=== PATIENT | female | born 1990 ===

== ENCOUNTER 2022-07-07 02:35 | Inpatient (IN) | payer SELFPAY ==
--- NOTE | 2022-07-07 04:41 | Ultrasound Report ---
Limited OB ultrasound INDICATION: well-being FINDINGS: Single live intrauterine in cephalic position. heart rate is 1 34 bpm. PEACE measures 16.9 cm. Signer Name: Rico Vann MD Signed: 07/07/2022 4:36 AM Workstation Name: [id number]
[2022-07-07 05:17] LABS: Hematocrit 34.4 % (30.3-42.9); Hemoglobin 11.6 gm/dl (10.1-14.3); Mean Corpuscular HGB Conc 34 % (30-34); Mean Corpuscular Volume 86 fl (79-97); Platelet Count 215 K/mm3 (140-440); Red Blood Count 3.99 M/mm3 (3.65-5.03); Red Cell Distribution Width 13.6 % (13.2-15.2)
[2022-07-07] MEDS ORDERED: ePHEDrine SULFATE 50 MG/1 ML INJ IV PRN ×2 (07:30→09:01)
[2022-07-07] MEDS ORDERED: METHYLERGONOVINE MALEATE 0.2 MG/ML VIAL IM PRN (08:00)
[2022-07-07] MEDS ORDERED: OXYTOCIN 10 UNIT/1 ML INJ IM PRN (08:00)
[2022-07-07] MEDS ORDERED: miSOPROStol 200 MCG TAB PR PRN (08:00)
[2022-07-07] MEDS ORDERED: OXYTOCIN DRIP 30 UNITS/500 ML BAG IV SCH ×3 (08:00→21:17)
[2022-07-07] MEDS ORDERED: BUTORPHANOL 2 MG/1 ML INJ IV PRN ×2 (08:00)
[2022-07-07] MEDS ORDERED: CARBOPROST TROMETHAMINE 250 MCG/1 ML INJ IM PRN (08:00)
[2022-07-07] MEDS ORDERED: ACETAMINOPHEN 325 MG TAB PO PRN (08:00)
[2022-07-07] MEDS ORDERED: LOPERAMIDE 2 MG CAP PO PRN (08:00)
--- NOTE | 2022-07-07 08:16 | History and Physical Report ---
History of Present Illness Date of examination: 07/07/22 Date of admission: 07/07/22 07:06 Chief complaint: I'm in labor History of present illness: 31 y/o presents to labor and delivery in labor. She is a patient of [facility]. She has a hx of primary for Breech in 2010 and a successful in 2017. GBS Negative Past History Past Medical History: no pertinent history Past Surgical History: section Social history: no significant social history - Obstetrical History Expected Date of Delivery: 07/10/22 Actual Gestation: 39 Week(s) 4 Day(s) : 3 Number of Living Children: 2 Medications and Allergies Allergies Allergy/AdvReac Type Severity Reaction Status Date / Time No Known Allergies Allergy Unverified 07/07/22 03:13 Active Meds: Active Medications Acetaminophen (Acetaminophen 325 Mg Tab) 650 mg PO Q4H PRN PRN Reason: Pain, Mild (1-3) Butorphanol Tartrate (Butorphanol 2 Mg/1 Ml Inj) 1 mg IV Q2H PRN PRN Reason: Pain, Moderate(4-6) LABOR PAIN Butorphanol Tartrate (Butorphanol 2 Mg/1 Ml Inj) 2 mg IV Q2H PRN PRN Reason: Pain , Severe (7-10) Carboprost Tromethamine (Carboprost Tromethamine 250 Mcg/1 Ml Inj) 250 mcg IM ONCE PRN PRN Reason: Uterine Bleeding Ephedrine Sulfate (Ephedrine Sulfate 50 Mg/1 Ml Inj) 10 mg IV Q2M PRN PRN Reason: Hypotension Oxytocin/Sodium Chloride (Pitocin/Ns 30 Unit/500ml) 30 units in 500 mls @ 2 mls/hr IV TITR ANALISA; Protocol Lactated Ringer's (Lactated Ringers) 1,000 mls @ 125 mls/hr IV DIRECT ANALISA Oxytocin/Sodium Chloride (Pitocin/Ns 30 Unit/500ml) 30 units in 500 mls @ 40 mls/hr IV TITR ANALISA; Protocol Lidocaine (Lidocaine (2%) 20 Mg/1 Ml Vial 20 Ml Mdv) 20 ml INFILTRATI ONCE ONE Stop: 07/07/22 07:05 Loperamide HCl (Loperamide 2 Mg Cap) 2 mg PO ONCE PRN PRN Reason: give with Hemabate Methylergonovine Maleate (Methylergonovine Maleate 0.2 Mg/Ml Vial) 0.2 mg IM ONCE PRN PRN Reason: Uterine Bleeding Mineral Oil (Mineral Oil 30 Ml Oral Liqd) 30 ml PO QHS PRN PRN Reason: Constipation Misoprostol (Misoprostol 200 Mcg Tab) 800 mcg AL ONCE PRN PRN Reason: Uterine Bleeding Oxytocin (Oxytocin 10 Unit/1 Ml Inj) 10 unit IM ONCE PRN PRN Reason: Uterine Bleeding Terbutaline Sulfate (Terbutaline 1 Mg/1 Ml Inj) 0.25 mg SUB-Q ONCE PRN PRN Reason: Hyperstimulation/Hypertonicity Review of Systems All systems: negative - Vital Signs Vital signs: Vital Signs Pulse Pulse Ox 108 H 98 07/07/22 02:56 07/07/22 02:56 Temp Pulse Resp BP Pulse Ox 98.6 F 88 133/89 98 07/07/22 02:57 07/07/22 07:35 07/07/22 06:55 07/07/22 07:35 - Physical Exam Breasts: Positive: deferred Cardiovascular: Regular rate Lungs: Positive: Clear to auscultation Abdomen: Positive: soft Vulva: both: normal Vagina: Positive: normal moisture Uterus: Positive: enlarged Adnexa: both: normal Deep Tendon Reflex Grade: Normal +2 - Obstetrical Uterine Contraction Monitor Mode: External Cervical Dilatation: 6 Cervical Effacement Percentage: 70 station: -1 Results Result Diagrams: 07/07/22 05:00 All other labs normal. Assessment and Plan A: Active labor @ 39.4 weeks P: Epidural Expect
[2022-07-07] MEDS ORDERED: LACTATED RINGERS 1,000 ML IV SCH (08:30)
[2022-07-07] MEDS ORDERED: LIDOCAINE (2%) 20 MG/1 ML VIAL 20 ML MDV INFILTRATI SCH (08:30)
[2022-07-07] MEDS ORDERED: TERBUTALINE 1 MG/1 ML INJ SUB-Q PRN (08:30)
--- NOTE | 2022-07-07 08:59 | Anesthesia Day of Surgery ---
Anesthesia Day of Surgery - Day of Surgery Patient Examined: Yes Patient H&P Reviewed: Yes Patient is NPO: Yes Beta Blockers: No Cardiac Clearance: No Pulmonary Clearance: No Uzair's Test: N/A
--- NOTE | 2022-07-07 08:59 | Anesthesia Consultation ---
Anesthesia Consult and Med Hx - Airway Anesthetic Teeth Evaluation: Good ROM Head & Neck: Adequate Mental/Hyoid Distance: Adequate Mallampati Class: Class II Intubation Access Assessment: Probably Good - Pulmonary Exam CTA: Yes - Cardiac Exam Cardiac Exam: RRR - Pre-Operative Health Status ASA Pre-Surgery Classification: ASA2 Proposed Anesthetic Plan: Epidural - Pulmonary Hx Smoking: No Hx Asthma: No - Cardiovascular System Hx Hypertension: No - Central Nervous System Hx Seizures: No Hx Psychiatric Problems: No - Endocrine Hx Renal Disease: No Hx Hypothyroidism: No Hx Hyperthyroidism: No - Hematic Hx Anemia: No Hx Sickle Cell Disease: No - Other Systems Hx Alcohol Use: No
[2022-07-07] MEDS ORDERED: MINERAL OIL 30 ML ORAL LIQD PO PRN (09:00)
[2022-07-07] MEDS ORDERED: NALOXONE 0.4 MG/1 ML INJ IV PRN (09:01)
[2022-07-07] MEDS ORDERED: LIDOCAINE MPF (2%) 20 MG/1 ML VIAL 5 ML ONE (09:36)
[2022-07-07] MEDS ORDERED: fentaNYL-BUPIV 2 MCG/ML-0.125% 200 MCG/100 ML BAG EPIDURAL SCH (10:00)
--- NOTE | 2022-07-07 13:10 | Event Note ---
Date: 07/07/22 pt evaluated and complete cervical dilation and category I FHR with areas of loss of contact. During pelvic exam pt SROM clear fluid 10/100/-2 station. Will allow descent with previous successful . If unsuccessful, I recommend repeat section at a later time. Hopeful for vaginal delivery.
--- NOTE | 2022-07-07 14:48 | Event Note ---
Date: 07/07/22 pt currently comfortable and no descent after more than 1hr of laboring down. Epidural dose decreased to 6 and u/s ordered for EFW. Discussed with pt alternate route of delivery with section if no descent. pt having ctx every 2-3mins. FHR remains category I. All questions encouraged and answered. Pelvic 10/100/-2 and with pushing almost to -1.
--- NOTE | 2022-07-07 16:01 | Ultrasound Report ---
ULTRASOUND OBSTETRIC LIMITED INDICATION / CLINICAL INFORMATION: estimated wt. Clinical Gestational Age (GA) in weeks, days: 39 weeks 4 days TECHNIQUE: Transabdominal. COMPARISON: None available. FINDINGS: NUMBER: Single PRESENTATION: cephalic PLACENTA: Fundal and free of the os. MEASUREMENTS: - Biparietal Diameter = 8.9 cm = 36 weeks, 0 days - Head Circumference = 32.47 cm = 36 weeks, 5 days - Abdominal Circumference = 37.58 cm = 41 weeks, 4 days - Femur Length = 7.12 cm = 36 weeks, 3 days - Estimated Weight (in grams, if calculated): 3723 g - Heart Rate (beats per minute): 171 ADDITIONAL FINDINGS: None. PERCENTILE ESTIMATED WEIGHT (if calculated): AVERAGE ULTRASOUND AGE (AUA) in weeks, days = 37 weeks 5 days IMPRESSION: 1. Single intrauterine with AUA of 37 weeks, 5 days. Signer Name: Kady Brown MD Signed: 07/07/2022 3:56 PM Workstation Name: [id number]
[2022-07-07 16:47] LABS: Cord Art Bld Carbxyhemoglobin 1.5; Cord Arterial Blood HCO3 20.9; Cord Arterial Oxyhemoglobin 41.8
--- NOTE | 2022-07-07 16:53 | Event Note ---
Attendance - Indication Indication for delivery Attendance: Distress Mode of Delivery: Vaginal Delivery Room Comment: called for Code [place] - vaginal delivery of 4320g female with nuchal cord and 's head/shoulder stuck in canal; HR ~ 100bpm, no respiratory effort; PPV x 30-45 sec with subsequent increase in HR to >100bpm and improved respiratory effort and tone; Pulse ox 96%; with significant facial bruising; CPT given for coarse breath sounds - bulb suctioned nares and oropharynx for moderate amounts clear fluid; stable infant left in L&D with Mom and SYLVIA nurse. - at 1 minute: 2 at 5 minutes: 9 Procedures in Delivery Room - Procedures Procedures in Delivery Room: Dry/Stimulate, Oral/Nasal Suctioning, CPAP (mask), IPPV (Bag & mask/[place] Disposition - Disposition Disposition: Remained with Mother Charges Charges: 57101 Resuscitation (If PPV given and/or Intubation/Chest Comp
--- NOTE | 2022-07-07 17:39 | Procedure Note ---
OB Delivery Note - Delivery Date of Delivery: 07/07/22 Surgeon: FLORENTINO TSE Estimated blood loss: 1000cc - Vaginal Delivery presentation: vertex Delivery position: OA Intrapartum events: shoulder dystocia Delivery induction: none Delivery monitor: external FHT, external uterine Route of delivery: Delivery placenta: spontaneous Delivery cord: 3 umbilical vessels Episiotomy: none Delivery laceration: 1st degree, 2nd degree Delivery repair: chromic Anesthesia: local, epidural Delivery comments: Pt had u/sound done and report pending. pt declined c/section option. Pt pushed ineffectively in dorsal lithotomy and left lateral and NICU present for delivery with shoulder dystocia after tight nuchal cord cut on the perineum. Pt stopped pushing in spite of encouragement from us and her spouse. Supra-pubic pressure given by nurse and me intermittently, and left posterior shoulder delivered with clockwise cork screw for the body. Viable male Baby delivered and then evaluated by NICU team with APGARS 2/9; Umbilical artery gas pH 7.3 and BE -6.2. Baby moving both arms equally and per SYLVIA nurse, no fractures. P lacenta delivered and then very marquez clot following with possible membranes/versus additional tissue. Will send placenta and additional tissue to pathology. Pt sustained 2nd perineal laceration with additional 1st degree abrasion on the skin. Both repaired with 2-0 chromic in running locked form and subcutaneously for 1st degree laceration and with epidural and local lidocaine 2% plain anesthetic. EBL 1000, will check cbc now and rubio placed to gravity and same to remain x6hr. Bimanual done and uterine atony treated with methergine 0.2mg IM, cytotec 1000mcg per rectum (with large non-thrombosed hemorrhoid seen) and IV pitocin. Additional IV access placed to left hand by me, pt now with PPH. Mom and baby stable in the room. Pt told that this baby "got stuck" and another vaginal with this large baby would not be recommended. Pt to be given additional doses of ancef with contamination of vaginal laceration from patient's soft stool as she delivered and extensive blood loss. All questions encouraged and answered. Emotional support given. - A at 1 minute: 2 (wt 4320g) at 5 minutes: 9 Infant Gender: Male
[2022-07-07] MEDS ORDERED: BENZOCAINE/MENTHOL 20/0.5% TOP SPRAY 56 GM TP PRN (21:17)
[2022-07-07] MEDS ORDERED: diphenhydrAMINE 25 MG CAP PO PRN (21:17)
[2022-07-07] MEDS ORDERED: WITCH HAZEL/ GLYCERIN PAD TP PRN (21:17)
[2022-07-07] MEDS ORDERED: LANOLIN/ZINC/DIMETHICONE (LANSINOH) 7 GM TP PRN (21:17)
[2022-07-07] MEDS ORDERED: MAGNESIUM HYDROXIDE (MOM) ORAL LIQD UDC PO PRN (21:17)
[2022-07-07] MEDS ORDERED: ONDANSETRON 4 MG/2 ML INJ IV PRN (21:17)
[2022-07-07] MEDS ORDERED: miSOPROStol 100 MCG TAB PR PRN (21:17)
[2022-07-07] MEDS ORDERED: PROMETHAZINE 25 MG RECT SUPP PR PRN (21:17)
[2022-07-07] MEDS ORDERED: HYDROCORTISONE 25 MG RECTAL SUPP PR PRN (21:17)
[2022-07-07] MEDS ORDERED: oxyCODONE /ACETAMINOPHEN 5-325MG TAB PO PRN (21:17)
[2022-07-07] MEDS ORDERED: PROMETHAZINE 25 MG TAB PO PRN (21:17)
[2022-07-07 21:20] LABS: Basophils # (Auto) 0.1 K/mm3 (0.0-0.1); Basophils % (Auto) 0.3 % (0.0-1.8); Hematocrit 29.8 % (30.3-42.9); Hemoglobin 9.9 gm/dl (10.1-14.3); Lymphocytes # (Auto) 1.4 K/mm3 (1.2-5.4); Lymphocytes % (Auto) 7.1 % (13.4-35.0); Mean Corpuscular HGB Conc 33 % (30-34); Mean Corpuscular Volume 87 fl (79-97); Monocytes # (Auto) 1.2 K/mm3 (0.0-0.8); Monocytes % (Auto) 6.3 % (0.0-7.3); Platelet Count 182 K/mm3 (140-440); Red Blood Count 3.45 M/mm3 (3.65-5.03); Red Cell Distribution Width 13.9 % (13.2-15.2)
[2022-07-07] MEDS: IBUPROFEN 800 MG TAB PO SCH (23:44)
[2022-07-08] MEDS: IBUPROFEN 800 MG TAB PO SCH ×2 (06:46→15:35)
--- NOTE | 2022-07-08 10:13 | Discharge Summary ---
Providers - Providers Date of Admission: 07/07/22 07:06 Date of discharge: 07/09/22 Attending physician: FLORENTINO Roblero MD Primary care physician: FLORENTINO TSE Hospitalization Reason for admission: active labor Delivery: (Sholulder Dystocia) Laceration: 1st degree, 2nd degree, other (QBL 1,000) Other procedures: none complications: none Discharge diagnosis: IUP at term delivered, baby: female Condition at discharge: Good Disposition: 01 HOME / SELF CARE / HOMELESS Plan - Discharge Medications Prescriptions: Ibuprofen [Motrin 800 MG tab] 800 mg PO Q8HR #30 tablet - Provider Discharge Summary Activity: no sex for 6 weeks Diet: routine Instructions: routine Additional instructions: [] Smoking cessation referral if applicable(refer to patient education folder for contact #) [] Refer to [facility]'s [facility] Booklet Call your doctor immediately for: * Fever > 100.5 * Heavy vaginal bleeding ( >1 pad per hour) * Severe persistent headache * Shortness of breath * Reddened, hot, painful area to leg or breast * Drainage or odor from incision. * Keep incision clean and dry at all times and follow doctor's instructions regarding bathing/showering - Follow up plan Follow up: FLORENTINO TSE MD [Primary Care Provider] - 6 Weeks
[2022-07-08] MEDS: DOCUSATE SODIUM 100 MG CAP PO SCH (11:28)
[2022-07-08] MEDS: ceFAZolin/NS 1 GM/50 ML 1 GM/50 ML BAG IV SCH ×2 (11:33→20:53)
[2022-07-08] MEDS ORDERED: D5W/0.45% NACL 1,000 ML IV SCH (12:00)
[2022-07-08 13:32] LABS: Hematocrit 26.8 % (30.3-42.9); Mean Corpuscular HGB Conc 34 % (30-34); Mean Corpuscular Volume 87 fl (79-97); Platelet Count 192 K/mm3 (140-440); Red Blood Count 3.07 M/mm3 (3.65-5.03)
[2022-07-08 13:52] LABS: Alanine Aminotransferase 15 units/L (7-56); Albumin 2.8 g/dL (3.9-5); Blood Urea Nitrogen 10 mg/dL (7-17); Calcium 8.2 mg/dL (8.4-10.2); Hemolysis Index 0
[2022-07-08 14:06] LABS: BUN/Creatinine Ratio 17
[2022-07-09] MEDS: IBUPROFEN 800 MG TAB PO SCH ×2 (01:32→13:01)
[2022-07-09] MEDS: DOCUSATE SODIUM 100 MG CAP PO SCH ×2 (01:34→10:40)
[2022-07-09] MEDS: ceFAZolin/NS 1 GM/50 ML 1 GM/50 ML BAG IV SCH ×2 (04:51→13:14)
[2022-07-09 10:31] LABS: Basophils # (Auto) 0.1 K/mm3 (0.0-0.1); Basophils % (Auto) 0.7 % (0.0-1.8); Eosinophils # (Auto) 0.2 K/mm3 (0.0-0.4); Eosinophils % (Auto) 1.1 % (0.0-4.3); Hematocrit 24.3 % (30.3-42.9); Lymphocytes % (Auto) 14.3 % (13.4-35.0); Mean Corpuscular HGB Conc 33 % (30-34); Mean Corpuscular Volume 88 fl (79-97); Monocytes # (Auto) 0.7 K/mm3 (0.0-0.8); Monocytes % (Auto) 4.9 % (0.0-7.3); Platelet Count 203 K/mm3 (140-440); Red Blood Count 2.76 M/mm3 (3.65-5.03); Red Cell Distribution Width 14.3 % (13.2-15.2)
[2022-07-09 17:30] VITALS: BP 107/53
== END 2022-07-09 17:25 | disposition home or self-care (01) | DRG 806 ==
LOC: TRG 02:35 → APU 02:36 → TRG 07:06 → LD 07:46 → OB 22:00
PROVIDERS: ADMIT Obstetrics & Gynecology; ATTEND Obstetrics & Gynecology
PROC: 0KQM0ZZ Repair Perineum Muscle, Open Approach (ICD-10-PCS; principal; 2022-07-07)
PROC: 10E0XZZ Delivery of Products of Conception, External Approach (ICD-10-PCS; 2022-07-07)
PROC: 3E0R3BZ Introduction of Anesthetic Agent into Spinal Canal, Percutaneous Approach (ICD-10-PCS; 2022-07-07)
PROC: 00HU33Z Insertion of Infusion Device into Spinal Canal, Percutaneous Approach (ICD-10-PCS; 2022-07-07)
DX: O66.0 Obstructed labor due to shoulder dystocia (principal); O72.1 Other immediate postpartum hemorrhage; Z37.0 Single live birth; Z20.822 Contact with and (suspected) exposure to COVID-19; O34.211 Maternal care for low transverse scar from previous cesarean delivery; Z3A.39 39 weeks gestation of pregnancy; O70.1 Second degree perineal laceration during delivery; O69.81X0 Labor and delivery complicated by cord around neck, without compression, not applicable or unspecified
CPT/HCPCS: 36415; 76815; 76816; 80053; 82803; 84112; 85025; 85027; 86592; 86850; 86900; 86901; 88307; G0378; J0690; U0003